=== PATIENT | male | born 1975 | race Caucasian/White ===

== ENCOUNTER 2020-10-09 01:41 | Emergency (ER) | payer SELFPAY ==
--- NOTE | 2020-10-09 03:25 | ER ---
Nurse's Notes [facility] Name: Tone Plaza Sr Age: 44 yrs Sex: Male : 1975 Arrival Date: 10/09/2020 Time: 01:45 Bed Waiting Private MD: Diagnosis: ED Course: 10/09 01:45 Patient arrived in ED. bp1 03:24 Patient's name was called from ER lobby. No response. Unable to locate patient. Will bb disposition as left without being seen by a provider. Administered Medications: No medications were administered Outcome: 03:25 Patient left the ED. bb Signatures: Pavithra Richardson RN RN bb Josi Marina bp1
== END 2020-10-09 03:25 | disposition left against medical advice (07) ==
LOC: ER 01:41
DX: Z02.9 Encounter for administrative examinations, unspecified (principal)

== ENCOUNTER 2020-10-10 01:35 | Emergency (ER) | payer SELFPAY ==
--- NOTE | 2020-10-10 03:26 | ER ---
Nurse's Notes [facility] Name: Tone Plaza Sr Age: 44 yrs Sex: Male : 1975 Arrival Date: 10/10/2020 Time: 01:42 Bed DIS1 Private MD: Diagnosis: Abscess back of neck Presentation: 10/10 02:50 Chief complaint: Patient states: he has an insect bite to the back of his head. bb Coronavirus screen: At this time, the client does not indicate any symptoms associated with coronavirus-19. Ebola Screen: No symptoms or risks identified at this time. Initial Sepsis Screen: Does the patient meet any 2 criteria? No. Patient's initial sepsis screen is negative. Does the patient have a suspected source of infection? No. Patient's initial sepsis screen is negative. Risk Assessment: Do you want to hurt yourself or someone else? Patient reports no desire to harm self or others. Onset of symptoms was October 10, 2020. 02:50 Method Of Arrival: Ambulatory bb 02:50 Acuity: MATTI 5 bb Triage Assessment: 03:41 Bite description: bite sustained to back of head by possible insect, animal bb information: vaccination(s) is not applicable. General: Appears in no apparent distress. Behavior is calm, cooperative. Pain: Denies pain. Neuro: Level of Consciousness is awake, alert, obeys commands, Oriented to person, place, time, situation. Cardiovascular: Capillary refill < 3 seconds Patient's skin is warm and dry. Respiratory: Respiratory effort is even, unlabored, Respiratory pattern is regular. GI: No signs and/or symptoms were reported involving the gastrointestinal system. Derm: Abscess located on back of head. Musculoskeletal: Circulation, motion, and sensation intact. Historical: - Allergies: 03:41 No Known Allergies; bb - Immunization history:: Adult Immunizations up to date, Client reports having NOT received the Covid vaccine. - Social history:: Smoking status: Patient reports use of chewing tobacco. Assessment: 03:43 Reassessment: No changes from previously documented assessment. Patient is alert, bb oriented x 3, equal unlabored respirations, skin warm/dry/pink. pt verbalized understanding of and agrees to plan of care discharge instructions given pt ambulated with steady gait to exit. Vital Signs: 03:00 BP 140 / 85 LA Sitting (auto/reg); Pulse 99; Resp 18; Temp 98.4; Pulse Ox 100% on R/A; tt3 Weight 90.72 kg (R); Height 5 ft. 11 in. (180.34 cm) (R); Pain 9/10; 03:00 Body Mass Index 27.89 (90.72 kg, 180.34 cm) tt3 ED Course: 01:42 Patient arrived in ED. bp1 03:00 Eitan Evans [facility]-C [facility] la1 03:00 Richie Truong MD is Attending Physician. pkl 03:25 Binu Castellanos MD is Referral Physician. pkl 03:41 Triage completed. bb 03:41 Arm band placed on. bb Administered Medications: 03:17 CANCELLED (Patient Refused): Clindamycin 300 mg PO once pkl 03:47 Drug: Bactrim (trimethoprim-sulfamethoxazole) (160 mg-800 mg (DS) 1 tablet Route: PO; bb 03:47 Follow up: Response: Medication administered at discharge. bb Outcome: 03:26 Discharge ordered by . pkl 03:46 Discharged to home ambulatory. bb 03:46 Condition: stable 03:46 Discharge instructions given to patient, Instructed on discharge instructions, follow up and referral plans. medication usage, Demonstrated understanding of instructions, follow-up care, medications, Prescriptions given X 1. 03:47 Patient left the ED. bb Signatures: Richie Truong MD MD pkl Pavithra Richardson, RN RN bb Eitan Evans FNP-C [employer] HEAD[employer] OPERATOR-Cla1 Josi Marina bp1 Trim, Shilo tt3 Corrections: (The following items were deleted from the chart) 03:41 03:41 PMHx: Hyperglycemic; bb bb
--- NOTE | 2020-10-10 03:26 | EDPHYS ---
Physician Documentation [facility] Name: Tone Plaza Sr Age: 44 yrs Sex: Male : 1975 Arrival Date: 10/10/2020 Time: 01:42 Bed DIS1 Private MD: ED Physician Richie Truong HPI: 10/10 03:18 This 44 yrs old Male presents to ER via Unassigned with complaints of Insect pkl Bite, - Back of Head. 03:18 The patient presents with an abscess of the back of neck. Description: swollen. Onset: pkl The symptoms/episode began/occurred 4 day(s) ago. Associated signs and symptoms: The patient has no apparent associated signs or symptoms. Historical: - Allergies: 03:41 No Known Allergies; bb - Immunization history:: Adult Immunizations up to date, Client reports having NOT received the Covid vaccine. - Social history:: Smoking status: Patient reports use of chewing tobacco. ROS: 03:18 Eyes: Negative for injury, pain, redness, and discharge, ENT: Negative for injury, pkl pain, and discharge. 03:18 Neck: Positive for abscess back of neck. 03:18 Cardiovascular: Negative for chest pain. 03:18 Respiratory: Negative for cough, shortness of breath. 03:18 Abdomen/GI: Negative for abdominal pain, nausea, vomiting, and diarrhea. 03:18 Back: Negative for acute changes. 03:18 : Negative for urinary symptoms. 03:18 MS/extremity: Negative for acute changes. 03:18 Skin: Positive for abscess, of the back of neck. 03:18 Neuro: Negative for altered mental status, loss of consciousness. Exam: 03:18 Head/Face: Normocephalic, atraumatic. Eyes: Pupils equal round and reactive to light, pkl extra-ocular motions intact. Lids and lashes normal. Conjunctiva and sclera are non-icteric and not injected. Cornea within normal limits. Periorbital areas with no swelling, redness, or edema. ENT: Nares patent. No nasal discharge, no septal abnormalities noted. Tympanic membranes are normal and external auditory canals are clear. Oropharynx with no redness, swelling, or masses, exudates, or evidence of obstruction, uvula midline. Mucous membranes moist. 03:18 Neck: abscess back of neck. 03:18 Chest/axilla: Exam negative for acute changes. 03:18 Cardiovascular: Rate: normal, Rhythm: regular. 03:18 Respiratory: the patient does not display signs of respiratory distress, Respirations: normal, Breath sounds: are clear throughout. 03:18 Abdomen/GI: Bowel sounds: normal, Palpation: abdomen is soft and non-tender, in all quadrants. 03:18 Back: Exam negative for acute changes. 03:18 : Exam negative for acute changes. 03:18 Musculoskeletal/extremity: Exam is negative for acute changes. 03:18 Skin: abscess, that is moderate sized, approximately 3 cm(s), of the back of neck, with induration. 03:18 Neuro: Orientation: is normal, Mentation: is normal, Cranial nerves: grossly normal, Motor: is normal. Vital Signs: 03:00 BP 140 / 85 LA Sitting (auto/reg); Pulse 99; Resp 18; Temp 98.4; Pulse Ox 100% on R/A; tt3 Weight 90.72 kg (R); Height 5 ft. 11 in. (180.34 cm) (R); Pain 9/10; 03:00 Body Mass Index 27.89 (90.72 kg, 180.34 cm) tt3 MDM: 03:00 Patient medically screened. pkl 03:18 Data reviewed: vital signs, nurses notes. ED course: Advised to see Dr. Castellanos ( pkl Surgeon ) in 1 to 2 days. Patient understood instruction. Administered Medications: 03:17 CANCELLED (Patient Refused): Clindamycin 300 mg PO once pkl 03:47 Drug: Bactrim (trimethoprim-sulfamethoxazole) (160 mg-800 mg (DS) 1 tablet Route: PO; bb 03:47 Follow up: Response: Medication administered at discharge. bb Disposition Summary: 10/10/20 03:26 Discharge Ordered Location: Home pkl Problem: new pkl Symptoms: are unchanged pkl Condition: Stable pkl Diagnosis - Abscess back of neck pkl Followup: pkl - With: Binu Castellanos MD - When: 1 - 2 days - Reason: Re-evaluation by your physician Discharge Instructions: - Discharge Summary Sheet pkl Forms: - Medication Reconciliation Form pkl - Thank You Letter pkl - Antibiotic Education pkl - Prescription Opioid Use pkl Prescriptions: - Bactrim DS 800-160 mg Oral Tablet - take 1 tablet by ORAL route every 12 hours for 7 days; 14 tablet; Refills: 0, pkl Product Selection Permitted Signatures: Richie Truong MD MD pkl Pavithra Richardson, RN RN bb Corrections: (The following items were deleted from the chart) 03:17 03:17 Clindamycin 300 mg PO once ordered. pkl pkl 03:41 03:41 PMHx: Hyperglycemic; bb bb
[2020-10-10] MEDS ORDERED: SMZ./TMP. 800/160 MG TABLET ONE (03:49)
[2020-10-10 03:50] VITALS: BP 140/85; TEMP 98.4; O2SAT 100
== END 2020-10-10 03:47 | disposition home or self-care (01) ==
LOC: ER 01:35
DX: L02.11 Cutaneous abscess of neck (principal); F17.220 Nicotine dependence, chewing tobacco, uncomplicated
CPT/HCPCS: 99283